=== PATIENT | male | born 1975 | race Caucasian/White ===

== ENCOUNTER 2020-12-14 13:51 | Emergency (ER) | payer SELFPAY ==
[~2020-12-14] VITALS: Ht 180.3 cm; Wt 93.0 kg
[2020-12-14] MEDS ORDERED: CLINDAMYCIN HC300 MG PO (14:35)
== END 2020-12-14 14:43 | disposition home or self-care (01) ==
LOC: ED 13:51
DX: L08.9 Local infection of the skin and subcutaneous tissue, unspecified (principal); Z90.89 Acquired absence of other organs

== ENCOUNTER → 2023-02-11 | Outpatient (CLI) | payer BC ==
[~2023-02-11] MED LIST: CLINDAMYCIN HC300 MG PO
[2023-02-11 15:38] LABS: BASO # 0.1 10*3/uL (0.0-0.1); BASO % 0.7 % (0.0-1.0); BILIRUBIN Negative (Negative); BLOOD Negative (Negative); CLARITY Clear (Clear); COLOR Yellow (Yellow); EOS # 0.1 10*3/uL (0.0-0.4); EOS % 1.1 % (1.0-4.0); GLUCOSE Negative (Negative); HEMATOCRIT 41.1 % (42.0-52.0); KETONE Negative (Negative); LEUKO ESTERASE Negative (Negative); LYMPH # 3.1 10*3/uL (1.3-4.4); LYMPH % 33.3 % (27.0-41.0); MEAN CELL VOLUME 90.3 fl (80.0-94.0); MEAN CORPUSCULAR HGB 30.1 pg (27.0-31.0); MEAN CORPUSCULAR HGB CONC 33.3 g/dl (33.0-37.0); MONO # 0.6 10*3/uL (0.1-1.0); MONO % 6.4 % (3.0-9.0); NEUT # 5.4 10*3/uL (2.3-7.9); NEUT % 58.3 % (47.0-73.0); NITRITE Negative (Negative); PLATELET COUNT AUTOMATED 261 10*3/uL (130-400); RED BLOOD COUNT 4.55 10*6/uL (4.50-5.90); RED CELL DISTRI WIDTH 12.7 % (0-14.5); RETICULOCYTE % 1.03 % (0.50-2.50); SPECIFIC GRAVITY 1.025 (1.001-1.030); UROBILINOGEN 0.2 E.U./dl (0.0-1.0); WHITE BLOOD COUNT 9.2 10*3/uL (4.8-10.8)
[2023-02-11 15:56] LABS: ALKALINE PHOSPHATASE 72 U/L (46-116); BUN 15 mg/dl (9-23); CHLORIDE 110 mmol/L (98-107); CHOLESTEROL 144 mg/dL (<200); GAMMA GLUTAMYL TRANSPEPTIDASE 17 U/L (0-73); LDL CHOLESTEROL 87 mg/dL (9-159); POTASSIUM 3.9 mmol/L (3.4-5.1); SGPT/ALT 20 U/L (10-49); THYROID STIM HORMONE (HS) 1.227 uIU/ml (0.550-4.780); THYROXINE (T4) TOTAL 6.5 ug/dl (4.5-10.9); TRIGLYCERIDES 51 mg/dl (<150); URIC ACID 5.6 mg/dL (3.7-9.2)
[2023-02-11 16:24] LABS: RBC 0-2 rbc/hpf (0-2); VITAMIN D, 25-HYDROXY 37.5 ng/mL (30-100); WBC 0-2 wbc/hpf (0-5)
[2023-02-12 14:07] LABS: ANTI-DSDNA ANTIBODIES <1 IU/mL (0-9)
== END | disposition home or self-care (01) ==
LOC: LAB 15:15
PROVIDERS: ATTEND Family Medicine
DX: E78.5 Hyperlipidemia, unspecified (principal); E55.9 Vitamin D deficiency, unspecified; R79.89 Other specified abnormal findings of blood chemistry; R53.83 Other fatigue; R74.8 Abnormal levels of other serum enzymes